=== PATIENT | male | born 1960 | race Caucasian/White ===

== ENCOUNTER 2023-07-29 07:15 | Outpatient (OUT) | payer OTHER, SELFPAY ==
[2023-07-29 07:38] LABS: Basophils Percent Auto 0.6 % (0.2-2.0); Eosinophils Absolute Auto 0.2 10^3/uL (0.0-0.7); Eosinophils Percent Auto 2.5 % (0.9-7.0); Hematocrit 41.3 % (42.0-54.0); Hemoglobin 13.9 g/dL (14.0-18.0); Immature Granulocytes Abs Auto 0.01 10^3/uL (0.00-0.03); Immature Granulocytes Pct Auto 0.2 % (0.0-0.5); Lymphocytes Percent Auto 31.2 % (20.5-60.0); Mean Corpuscular HGB Conc 33.7 g/dL (29.9-35.2); Mean Corpuscular Hemoglobin 30.5 pg (25.9-34.0); Mean Corpuscular Volume 90.6 fL (80.0-94.0); Mean Platelet Volume 9.7 fL (9.5-13.5); Monocytes Absolute Auto 0.6 10^3/uL (0.3-0.8); Monocytes Percent Auto 9.2 % (1.7-12.0); Neutrophils Absolute Auto 3.6 10^3/uL (1.4-6.5); Neutrophils Percent Auto 56.3 % (43.0-75.0); Platelet Count 238 10^3/uL (150-450); Red Blood Count 4.56 10^6/uL (4.70-6.10); Red Cell Distribution Width 12.5 % (11.0-15.0); White Blood Count 6.3 10^3/uL (4.0-11.0)
[2023-07-29 08:19] LABS: Bilirubin Urine NEGATIVE (NEGATIVE); Blood Urine NEGATIVE (NEGATIVE); Clarity Urine CLEAR (CLEAR); Color Urine LT. YELLOW (YELLOW); Glucose Urine UA NEGATIVE (NEGATIVE); Ketones Urine NEGATIVE (NEGATIVE); Leukocyte Esterase Urine NEGATIVE (NEGATIVE); Nitrite Urine NEGATIVE (NEGATIVE); Protein Urine NEGATIVE (NEG/TRACE); Urobilinogen Urine 0.2 EU/dL (0.2-1.0)
[2023-07-29 08:31] LABS: Alanine Aminotransferase 30 U/L (16-63); Albumin Level 3.5 g/dL (3.4-5.0); Alkaline Phosphatase 88 U/L (46-116); Aspartate Amino Transferase 14 U/L (15-37); BUN Creatinine Ratio 10.5; Bilirubin Total 0.4 mg/dL (0.2-1.0); Calcium 8.5 mg/dL (8.5-10.1); Carbon Dioxide 27.4 mmol/L (21.0-32.0); Chloride 102 mmol/L (98-107); Chol HDL Ratio 3.1; Cholesterol 159 mg/dL (<=200); Estimated GFR (African America >60 (>=60); Estimated GFR (Non-African Ame 55 (>=60); Globulin 3.6 g/dL; Glucose 93 mg/dL (74-106); HDL Cholesterol 51 mg/dL (40-60); LDL Cholesterol Calculated 91.4 mg/dL; Potassium 4.4 mmol/L (3.5-5.1); Sodium 137 mmol/L (136-145); Thyroid Stimulating Hormone 2.391 uIU/mL (0.358-3.740); Total Protein 7.1 g/dL (6.4-8.2); Triglycerides 83 mg/dL (<=150); VLDL CHOLESTEROL 16.6 mg/dL
[2023-07-29 08:37] LABS: Estimated Average Glucose 117 mg/dL; Glycohemoglobin A1C 5.7 % (4.5-6.2)
[2023-07-29 08:38] LABS: Bacteria Urine NONE SEEN #/HPF (NONE SEEN); Cast Seen? NONE SEEN #/LPF (NONE SEEN); Crystals Seen? None Seen #/HPF (None Seen); Mucus Urine NONE SEEN (NONE SEEN); RBC Urine 0-2 #/HPF (0-2); Squamous Epithelial Cell Urine RARE #/LPF (NONE/RARE); WBC Urine 0-2 #/HPF (NONE SEEN)
[2023-07-29 08:39] LABS: Urine Culture Indicated ALREADY ORDERED
== END 2023-07-29 07:16 | disposition home or self-care (01) ==
PROVIDERS: PCP Family Medicine; Visit Provider Family Medicine
DX: E78.5 Hyperlipidemia, unspecified (principal); R79.89 Other specified abnormal findings of blood chemistry; Z79.899 Other long term (current) drug therapy; R63.5 Abnormal weight gain; R35.1 Nocturia
CPT/HCPCS: 36415; 80053; 80061; 81001; 83036; 84443; 85025; 87086

== ENCOUNTER 2023-10-23 15:38 | Outpatient (OUT) | payer OTHER, SELFPAY ==
[2023-10-23 16:00] LABS: Basophils Percent Auto 0.4 % (0.2-2.0); Eosinophils Absolute Auto 0.3 10^3/uL (0.0-0.7); Eosinophils Percent Auto 4.1 % (0.9-7.0); Hematocrit 36.6 % (42.0-54.0); Hemoglobin 12.5 g/dL (14.0-18.0); Immature Granulocytes Abs Auto 0.02 10^3/uL (0.00-0.03); Immature Granulocytes Pct Auto 0.2 % (0.0-0.5); Lymphocytes Absolute Auto 1.4 10^3/uL (1.2-3.8); Lymphocytes Percent Auto 16.9 % (20.5-60.0); Mean Corpuscular HGB Conc 34.2 g/dL (29.9-35.2); Mean Corpuscular Hemoglobin 30.7 pg (25.9-34.0); Mean Corpuscular Volume 89.9 fL (80.0-94.0); Mean Platelet Volume 8.8 fL (9.5-13.5); Monocytes Absolute Auto 0.9 10^3/uL (0.3-0.8); Monocytes Percent Auto 10.8 % (1.7-12.0); Neutrophils Absolute Auto 5.5 10^3/uL (1.4-6.5); Neutrophils Percent Auto 67.6 % (43.0-75.0); Platelet Count 319 10^3/uL (150-450); Red Blood Count 4.07 10^6/uL (4.70-6.10); Red Cell Distribution Width 12.2 % (11.0-15.0); White Blood Count 8.1 10^3/uL (4.0-11.0)
[2023-10-23 16:26] LABS: Erythrocyte Sedimentation Rate 74 mm/hr (<=20)
[2023-10-23 17:42] LABS: Alanine Aminotransferase 27 U/L (16-63); Albumin Globulin Ratio 0.8; Albumin Level 3.3 g/dL (3.4-5.0); Alkaline Phosphatase 108 U/L (46-116); Anion Gap 13.9; Aspartate Amino Transferase 16 U/L (15-37); Bilirubin Total 0.3 mg/dL (0.2-1.0); C Reactive Protein 3.91 mg/dL (<=0.50); Calcium 8.9 mg/dL (8.5-10.1); Carbon Dioxide 27.2 mmol/L (21.0-32.0); Chloride 100 mmol/L (98-107); Estimated GFR (African America >60 (>=60); Estimated GFR (Non-African Ame 56 (>=60); Globulin 4.3 g/dL; Glucose 121 mg/dL (74-106); Potassium 4.1 mmol/L (3.5-5.1); Sodium 137 mmol/L (136-145); Total Protein 7.6 g/dL (6.4-8.2); Uric Acid 6.4 mg/dL (3.5-7.2)
[2023-10-25 14:15] LABS: Anti-CCP Ab, IgG/IgA 10 units (0-19)
[2023-10-25 15:14] LABS: Lyme Total Antibody CIA Negative (Negative)
[2023-10-26 11:10] LABS: Antinuclear Antibodies, IFA Positive (.)
== END 2023-10-23 15:39 | disposition home or self-care (01) ==
LOC: LAB 15:40
PROVIDERS: PCP Family Medicine; Visit Provider Family Medicine
DX: Z79.899 Other long term (current) drug therapy (principal); M25.50 Pain in unspecified joint; T14.8XXA Other injury of unspecified body region, initial encounter
CPT/HCPCS: 36415; 80053; 84550; 85025; 85652; 86038; 86140; 86200; 86431; 86618

== ENCOUNTER 2023-11-30 16:32 | Outpatient (OUT) | payer OTHER, SELFPAY ==
[2023-11-30 17:14] LABS: Basophils Percent Auto 0.6 % (0.2-2.0); Eosinophils Absolute Auto 0.2 10^3/uL (0.0-0.7); Eosinophils Percent Auto 3.2 % (0.9-7.0); Hemoglobin 13.3 g/dL (14.0-18.0); Immature Granulocytes Abs Auto 0.02 10^3/uL (0.00-0.03); Immature Granulocytes Pct Auto 0.3 % (0.0-0.5); Lymphocytes Absolute Auto 1.4 10^3/uL (1.2-3.8); Lymphocytes Percent Auto 19.6 % (20.5-60.0); Mean Corpuscular HGB Conc 34.1 g/dL (29.9-35.2); Mean Corpuscular Volume 90.9 fL (80.0-94.0); Mean Platelet Volume 9.9 fL (9.5-13.5); Monocytes Absolute Auto 0.7 10^3/uL (0.3-0.8); Monocytes Percent Auto 9.3 % (1.7-12.0); Neutrophils Absolute Auto 4.9 10^3/uL (1.4-6.5); Platelet Count 249 10^3/uL (150-450); Red Blood Count 4.29 10^6/uL (4.70-6.10); Red Cell Distribution Width 12.9 % (11.0-15.0); White Blood Count 7.2 10^3/uL (4.0-11.0)
== END 2023-11-30 16:33 | disposition home or self-care (01) ==
LOC: LAB 16:33
PROVIDERS: PCP Family Medicine; Visit Provider Family Medicine
DX: D64.9 Anemia, unspecified (principal)
CPT/HCPCS: 36415; 85025

== ENCOUNTER 2024-09-24 16:58 | Emergency (ER) | payer OTHER, SELFPAY ==
[2024-09-24 17:04] VITALS: BP 151/93; PULSE 67; TEMP 36.7; O2SAT 97; BMI 39.5
--- NOTE | 2024-09-24 17:29 | ED.UPPEXIN1 ---
HPI HPI - Extremity Injury (Upper) General Chief Complaint: Extremity Injury, Upper Stated Complaint: L SHOULDER PAIN Time Seen by Provider: 09/24/24 17:05 Source: patient Mode of arrival: walk-in Limitations: no limitations History of Present Illness HPI narrative: 63-year-old male presents here with a chief complaint of left shoulder injury. Patient was doing yard work several days ago states he fell with his arm outstretched over the last couple days it increased difficulty using the left upper extremity and raising above his head due to pain. There is no obvious deformity. No obvious dislocation. He is right-hand dominant. States has not injured this extremity in the past. He is here for evaluation. Related Data Previous Rx's ?Medication ?Instructions ?Recorded ibuprofen 800 mg tablet 800 mg PO Q8H PRN pain #30 tabs 09/24/24 Allergies Allergy/AdvReac Type Severity Reaction Status Date / Time No Known Drug Allergies Allergy Verified 09/24/24 17:04 Opioid HPI Opioid Management Most Recent Pain and Opioid Data: Last Pain Scale 5 Today, 17:12 Last ED Pain Assessment Today, 17:12 Review of Systems ROS Status of ROS 10 or more systems reviewed and unremarkable except as noted in history and below PFSH PFSH Social History Little interest or pleasure in doing things: not at all Feeling down, depressed, or hopeless: not at all Exam Narrative Exam Narrative: All Systems are negative except as noted/marked.All systems reviewed and otherwise negative Nurses note and vital signs reviewed and patient is not hypoxic. General: The patient appears well and in no apparent distress. Patient is resting comfortably on cart. Skin: Warm, dry, no pallor noted. There is no rash noted. Head: Normocephalic, atraumatic Eye: Normal conjunctiva, no drainage, EOMI. PERRL Ears, Nose, Mouth, and Throat: oral mucosa is moist. Nares patent. Mouth without vesicles. Ear canals patent. Tm's without Erythema Cardiovascular: Regular Rate and Rhythm Musculoskeletal: Pain, difficulty with range of motion including elevation above 180 degrees, abduction and adduction limited due to pain, no acute dislocation, suspected rotator cuff or labrum injury the patient has no evidence of calf tenderness, no pitting edema, symmetrical pulses noted bilaterally Neurological: A&O x4, normal speech Psychiatric: Cooperative Constitutional Vital Signs, click to edit/add: Last Vital Signs Temp 98.1 F 09/24/24 17:04 Pulse 67 09/24/24 17:04 Resp 20 09/24/24 17:04 BP 151/93 H 09/24/24 17:04 Pulse Ox 97 09/24/24 17:04 O2 Del Method Room Air 09/24/24 17:04 Course Vital Signs Vital signs: Vital Signs Temperature 98.1 F 09/24/24 17:04 Pulse Rate 67 09/24/24 17:04 Respiratory Rate 20 09/24/24 17:04 Blood Pressure 151/93 H 09/24/24 17:04 Pulse Oximetry 97 09/24/24 17:04 Oxygen Delivery Method Room Air 09/24/24 17:04 Temperature 98.1 F 09/24/24 17:04 Pulse Rate 67 09/24/24 17:04 Respiratory Rate 20 09/24/24 17:04 Blood Pressure 151/93 H 09/24/24 17:04 Pulse Oximetry 97 09/24/24 17:04 Oxygen Delivery Method Room Air 09/24/24 17:04 MDM - Extremity Injury (Upper) MDM Narrative Medical decision making narrative: 63-year-old male presents here with a chief complaint of left shoulder injury. Patient was doing yard work several days ago states he fell with his arm outstretched over the last couple days it increased difficulty using the left upper extremity and raising above his head due to pain. There is no obvious deformity. No obvious dislocation. He is right-hand dominant. States has not injured this extremity in the past. He is here for evaluation. Toradol discharged home with diagnosis shoulder sprain x-ray showed no acute fracture or deformity. Believe patient has a shoulder sprain possible rotator cuff injury. He will follow-up with Dr. Gleason's office. He was given a prescription of ibuprofen medicated here with Toradol. Patient agrees with plan of care Differential Diagnosis Differential diagnosis: Likely dislocation of shoulder and other Medical Records Attestation: I reviewed the patient's medical records. Imaging Data shoulder: Radiologist's impression: neg no dislocation Discharge Plan Discharge Chief Complaint: Extremity Injury, Upper Clinical Impression: Shoulder sprain Patient Disposition: Home, Self-Care Time of Disposition Decision: 17:46 Condition: Good Prescriptions / Home Meds: New ibuprofen 800 mg tablet 800 mg PO Q8H PRN (Reason: pain) Qty: 30 0RF Print Language: Ukrainian Instructions: Shoulder Sprain (ED), P.R.I.C.E. Treatment (ED) Referrals: BABAR WALKER [Primary Care Provider, Family Practice] - 1 week Walter Gleason MD [Physician, Orthopedics] - 09/30/24 11:00 am
[2024-09-24 18:00] VITALS: PULSE 68; O2SAT 98
== END 2024-09-24 18:00 | disposition home or self-care (01) ==
PROVIDERS: Emergency Provider Emergency Medicine; PCP Family Medicine
DX: S43.402A Unspecified sprain of left shoulder joint, initial encounter (principal); W18.39XA Other fall on same level, initial encounter
CPT/HCPCS: 73030; 99283

== ENCOUNTER 2024-10-17 12:18 | Outpatient (OUT) | payer OTHER, SELFPAY ==
--- OUTSIDE RECORDS SUMMARY | 2024-09-30 07:00 | XMS_ITS ---
Author Organization [facility] Address [address] [place] [address] Care Team Providers Care Hand Stitcher Name Role Phone Rosibel Walter Unavailable [phone] Allergies No Known Allergies Reason For Referral Reason APPROVED .........PL EASE OBTAIN AUTHORIZATION FOR LEFT SHOULDER MRI Diagnosis 1 Acute pain of left s houlder (M25.512) Referral Organization [facility] Referring Provider First Name Walter Referring Provider Last Name Rosibel Referring Provider Speciality Orthopedic Surgery Referred Organization [facility] alejandrina Referred Address [place], [place], Procedure 1 MRI Joint Upper Ext w/o Dye (80001) General Notes Jacqueline Gómez 025 01:27:07 PM >NEED DICTATION, PENDING [employer] DRAFT #[id number] Amy 10/01/2024 08:01:02 AM >APPROVED PER [employer] Authorization #[id number] Tracking #[id number] VALID 10/01/2024-11/15/2024 COPY IN CHART MA NOTIFIED REF FAXED TO Sudeep MORTON Monica 10/02/2024 08:17:44 AM >FAXED ORDER Referral Priority Routine REASON FOR VISIT [facility] ER LEFT SHOULDER PAIN Medications Medication SIG (Take, Route, Frequency, Duration) Notes Start Date End Date Status omeprazole Active amLODIPine Active Social History Tobacco Use: Social History Observation Description Date Details (start date - stop date) Never Smoker NA - NA AUDIT-C (Standard) Question Answer Notes Did you have a drink contain ing alcohol in the past year? Yes How often did you have a dri nk containing alcohol in the past year? Monthly or less (1 point) How many drinks did you have on a typical day when you were drinking in the past year? 1 or 2 drinks (0 point) How often did you have six o r more drinks on one occasion in the past year? Never (0 point) Points 1 Interpretation Negative Tobacco Control (Standard) Question Answer Notes Tobacco use: Nonsmoker Vital Signs Height 5'6 in 09/30/2024 Weight 245 lbs 09/30/2024 BMI 39.54 09/30/2024 Encounters Encounter Location Date Provider Diagnosis [facility] [facility] [address] [place] [address] [place] [address] 09/30/2024 Walter Gleason Acute pain of left shoulder M25.512 Assessments Encounter Date Diagnosis (ICD Code) Assessment Notes Treatment Notes Treatment Clinical Notes Section Notes 09/30/2024 Acute pain of left shoulder (ICD-10 - M25.512) 09/30/2024 Other Patient's history and examination of his left shoulder concerning for a rotator cuff tear. I recommended an MRI scan. Will follow-up once the MRI is complete. Import medication Plan Of Treatment Treatment Notes Assessment Notes Other Patient's history and examination of his left shoulder concerning for a rotator cuff tear. I recommended an MRI scan. Will follow-up once the MRI is complete. Import medication Pending Test Test Name Order Date MRI : Shoulder W/O Contrast Left - [id number] 09/30/2024 Referrals Referral Date Details 09/30/2024 09/30/2024, APPROVED .........PLEASE OBTAIN AUTHORIZATION FOR LEFT SHOULDER MRI, [place], [place] Next Appt Details Follow Up: AFTER MRI, Reason : Progress Notes * ROSITA GARCIA JRDOB:[birth year] (64 yo M)Acc No.[id number]:09/30/2024 Patient: Selina ROSITA ROSAS JR Provider: Esteban Gleason MD :1960 A ge:63 Y S ex:Male Date:09/30/2024 Address:[address] [place], [place] [id number] Subjective: * Chief Complaints: * 1 . [facility] ER LEFT SHOULDER PAIN. * HPI: G eneral Follow Up Information: Patient presents today for left shoulder injury sustained this past week. He reports bug working with a tiller started to roll down to the hill and get away from him. As he was going after it he fell to his left shoulder with acute onset of pain. G eneral Info per Patient Report: Have you seen another doctor in this practice? N o. S flako affected is L eft. J oint or body part affected is s noahulder. D ate of Injury:?09/15/2024. S tart of Pain/Cause of Injury . P ain occurred i njury. Work related: N o. M otor vehicle accident: N o. T hird green party responsibility: N o. Q uality of pain is s evere. T ype of pain: s harp. H ave you been seen by a Dentist in the last year? Y es. D o you have any dental problems? N o. * ROS: G astrointestinal: Ulcer/Reflux Y es. M usculoskeletal: Joint pain Y es. J oint Swelling Y es. J oint stiffness Y es. N eurological: Numbness/ Tingling Yes. * Medical History: R espiratory problems:, Heart problems:, Blood Clots: , High Blood Pressure, Kidney trouble, CPAP Machine: yes, using it, Sleep apnea. * Surgical History: U mbilical hernia repair 10/13/2022 ?. * Family History: G randparents: diagnosed with Arthritis. M other: diagnosed with Stroke, Diabetes, Arthritis, Heart trouble, Lung disease. F ather: diagnosed with Stroke, Cancer. * Social History: E xercise regularly: No . W hat is your place of residence?: home . A CLAUDIO-C (Standard) D id you have a drink containing alcohol in the past year? Y es, H ow often did you have a drink containing alcohol in the past year? M onthly or less (1 point), H ow many drinks did you have on a typical day when you were drinking in the past year? 1 or 2 drinks (0 point), H ow often did you have six or more drinks on one occasion in the past year? N ever (0 point), P oints 1 , I nterpretation N egative. T obacco Control (Standard) T obacco use: N onsmoker. * Medications: T aking amLODIPine , Taking omeprazole , Medication List reviewed and reconciled with the patient * Allergies: N .K.D.A. Objective: * Vitals: H t: 5'6 , Wt: 245 lbs, BMI:39.54. * Examination: G eneral examination: E xamination today of his left shoulder reveals a positive drop arm test. He also has weakness with external rotation testing. X -ray Imaging Studies: S trays of his left shoulder from [place] are reviewed and show no acute abnormalities. Assessment: * Assessment: 1. A cute pain of left shoulder - M25.512 (Primary) Plan: * Treatment: 2. O thers Notes: Patient's history and examination of his left shoulder concerning for a rotator cuff tear. I recommended an MRI scan. Will follow-up once the MRI is complete. Import medication * Follow Up: A FTER MRI Forms: * Images: * Electronic signature of Zander Gleason MD on 10/17/2024 at 12:20 PM EDT Sign off status: Pending * Provider: Esteban Gleason MD Date: 0 09/30/2024 Generated for Carie webb/Lauryn/Periransmitting on: 0 10/17/2024 12:20 PM EDT History and Physical Notes * HPI (History of Present Illness) Category Sub-Category Detail Notes Category Not es General Follow Up Information Patient presents tod ay for left shoulder injury sustained this past week. He reports bug working with a tiller started to roll down to the hill and get away from him. As he was going after it he fell to his left shoulder with acute onset of pain. General Info per Patient Report Side affected is Left Joint or body part affected is shoulder Pain occurred injury Work related: No Motor vehicle accident: No Quality of pain is severe Type of pain: sharp Have you seen another doctor in this pra ctice? No Date of Injury: 09/15/2024 Start of Pain/Cause of Injury 09/15/2024 Third green party responsibility: No Have you been seen by a Dentist in the l ast year? Yes Do you have any dental problems? No Examination Category Sub-Category Detail Notes Category Not es General examination Examinat ion today of his left shoulder reveals a positive drop arm test. He also has weakness with external rotation testing. X-ray Imaging Studies Strays of his left shoulder from [place] are reviewed and show no acute abnormalities. Consultation Request Notes Referral Date Referring Provider Referred Provider Not es 09/30/2024 Walter Gleason , KALE .. .......PLEASE OBTAIN AUTHORIZATION FOR LEFT SHOULDER MRI
--- OUTSIDE RECORDS SUMMARY | 2024-10-17 12:20 | XMS_ITS | Encounter Summary ---
Author Organization [facility] Address [address] [place] [address] Care Team Providers Care Clinical Pharmacy Coordinator Name Role Phone Omega Hansen MD Primary Care Provider [phone] Encounter Details Date Type Department Care Team (Late st Contact Info) Description 01/03/2023 Abstract [facility] [address] [place] [id number] Peggy Lan RN [address] [place], [place] [id number] Social History Tobacco Use Types Packs/Day Years Used Date Smoking Tobacco: Never Smokeless Tobacco: Never Tobacco Cessation:Counseling Given: Not Answered Alcohol Use Standard Drinks/Week Comments Yes 4 (1 standard drink = 0.6 oz pur e alcohol) Sex and Gender Information Value Date Recorded Sex Assigned at Not on file Legal Sex Male 6:55 PM EDT Gender Identity Not on file Sexual Orientation Not on file documented as of this encounter Plan of Treatment Not on file documented as of this encounter Visit Diagnoses Not on filedocumented in this encounter Care Teams Clinical Pharmacy Coordinator Relationship Specialty Start Date End Date Omega Hansen MD [address] [place] [address] [place] [address] PCP - General Family Medicine 12/28/22 documented as of this encounter
--- OUTSIDE RECORDS SUMMARY | 2024-10-17 12:20 | XMS_ITS | Clinical Summary ---
Author Organization [facility] Address [id number] [address] [place] [address] Care Team Providers Care Research And Evaluation Manager Name Role Phone Omega Hansen DO Primary Care Provider [phone] Allergies No known active allergies Medications amLODIPine (NORVASC) 2.5 mg tablet Take 1 tablet (2.5 mg total) by mouth in the morning. Active omeprazole (PriLOSEC OTC) 20 mg EC tablet Take 1 tablet (20 mg total) by mouth in the morning. Active Active Problems Problem Noted Date Diagnosed Date GERD (gastroesophageal reflux disease) 4 Stage 3 acute kidney injury 09/11/2023 Chest pressure 09/10/2023 Hyperlipidemia 01/03/2023 Obstructive sleep apnea 01/03/2023 Primary hypertension 02/05/2015 Family History Medical History Relation Name Comments Cancer Father started in lymp hnodes and spread to bone Diabetes Mother Hypertension Mother Mitchel's disease Mother Relation Name Status Comments Brother Alive Father Mother Sister Alive Social History Tobacco Use Types Packs/Day Years Used Date Smoking Tobacco: Never Smokeless Tobacco: Never Tobacco Cessation:Counseling Given: No Alcohol Use Standard Drinks/Week Comments Yes 0 (1 standard drink = 0.6 oz pur e alcohol) social [facility] Utilities Answer Date Recorded In the past 12 months has th e electric, gas, oil, or water company threatened to shut off services in your home? No 09/11/2023 PRAPARE - Transportation Answer Date Re corded In the past 12 months, has l ack of transportation kept you from medical appointments or from getting medications? No 08/21 In the past 12 months, has l ack of transportation kept you from meetings, work, or from getting things needed for daily living? No 09/11/2023 Housing Instability Answer Date Recorde d Are you worried or concerned that in the next two months you may not have stable housing that you own, rent or stay in as a part of a household? No 09/11/2023 Childcare Answer Date Recorded Childcare Unknown 10/31/2018 Employment Answer Date Recorded Employment Unknown 10/31/2018 Hunger Screening Answer Date Recorded Within the past 12 months we worried whether our food would run out before we got money to buy more. Never True 09/11/2023 Within the past 12 months th e food we bought just didn't last and we didn't have money to get more. Never True 09/11/2023 Sex and Gender Information Value Date Recorded Sex Assigned at Not on file Legal Sex Male 11:47 AM EDT Gender Identity Not on file Sexual Orientation Not on file Last Filed Vital Signs Vital Sign Reading Time Taken Comments Blood Pressure 127/81 09/11/2023 1:00 PM EDT Pulse 70 09/11/2023 1:00 PM EDT Temperature 37.2 C (98.9 F) 09/11/2023 1:00 PM EDT Respiratory Rate 16 09/11/2023 1:00 PM EDT Oxygen Saturation 96% 09/11/2023 1:00 PM EDT Inhaled Oxygen Concentration - - Weight 112 kg (247 lb) 09/11/2023 1:00 PM EDT Height 167.6 cm (5' 6 ) 09/11/2023 1:00 PM EDT Body Mass Index 39.87 09/11/2023 1:00 PM EDT Plan of Treatment Health Maintenance Due Date Last Done Comments Depression Screening 1974 Zoster (Shingles) Vaccine (1 of 2) 2012 COVID-19 Vaccine (2023-2 5 season) 2024 09/10/2020, 08/20/2020 DTaP,Tdap and Td Vaccines (2 - Td or Tdap) 09/01/2024 09/01/2014 Adult BMI Screening 09/10/2024 09/11/2023 Tobacco Screening 09/10/2024 09/11/2023 Influenza Vaccine 01/20/2025 02/20/2020, , 03/30/2017, Additional history exists Goals Goal Patient Goal Type Associated Problems Recent Progress Patient-Stated? Author home General Yes Pura Durham LSW Note: Evaluation of progress towards goal: await testing results Medical Devices Not on file Insurance [employer] Advance Directives * Full Code (Latest Code Status on File) Date Activated Date Inactivated Comments 09/10/2023 7:46 PM 09/11/2023 6:51 PM Care Teams Research And Evaluation Manager Relationship Specialty Start Date End Date Omega Hansen DO [address] [place] [address] [place] [address] PCP - General Family Medicine 09/10/23
--- OUTSIDE RECORDS SUMMARY | 2024-10-17 12:20 | XMS_ITS | Encounter Summary ---
Author Organization [facility] Address [address] [place] [address] Phone Care Team Providers Care Cena Name Role Phone Omega Hansen DO Primary Care Provider [phone] Omega Hansen DO Primary Care Provider [phone] Jenny Nj MD Unavailable [phone] Encounter Details Date Type Department Care Team (Late st Contact Info) Description 02/27/2024 Scanned Document [facility] [address] [place] [id number] Scanning, Generic Provider Social History Tobacco Use Types Packs/Day Years Used Date Smoking Tobacco: Never Smokeless Tobacco: Never Alcohol Use Standard Drinks/Week Comments Yes 0 (1 standard drink = 0.6 oz pur e alcohol) social Sex and Gender Information Value Date Recorded Sex Assigned at Not on file Legal Sex Male 10:37 PM EST Gender Identity Not on file Sexual Orientation Not on file documented as of this encounter Plan of Treatment Upcoming Encounters Date Type Department Care Team (Late st Contact Info) Description 05/01/2025 8:30 AM EST Office Visit [address] [place] [address] Jenny Nj MD [address] [place] [address] documented as of this encounter Visit Diagnoses Not on filedocumented in this encounter Additional Health Concerns Assessment Noted Time A fall risk assessment has been complete d for the patient 05/04/2023 10:54 AM EST documented as of this encounter Care Teams Cena Relationship Specialty Start Date End Date Omega Hansen DO PCP - General 05/22/18 04/29/24 Omega Hansen DO [address] [place] [address] PCP - General Family Medicine 04/30/24 Jenny Nj MD [facility] [address] [facility] [address] [place] [address] Consulting Physician Cardiology 04/30/24 documented as of this encounter
--- OUTSIDE RECORDS SUMMARY | 2024-10-17 12:20 | XMS_ITS | Clinical Summary ---
Author Organization [facility] Address [address] [place] [address] Care Team Providers Care Carpentry Supervisor Name Role Phone Omega Hansen MD Primary Care Provider [phone] Allergies Active Allergy Reactions Criticality Noted Date Comments Other Unknown 01/03/2023 seasonal Medications amLODIPine (Norvasc) 2.5 MG tablet Take 2.5 mg by mouth in the morning. Active fluocinonide (Lidex) 0.05 % ointment Apply topically. Active omeprazole (PriLOSEC) [address] bettinaIndashok ons:LPRD (laryngopharyng eal reflux disease) Take 1 capsule (40 mg) by mouth in the morning. Take before meals. Do not crush or chew.. 90 capsule 01/09/2023 Active famotidine (Pepcid) 20 MG tabletIndicatio ns:LPRD (laryngopharyng eal reflux disease) Take 1 tablet (20 mg) by mouth at bedtime. 90 tablet 01/09/2023 Active Active Problems Problem Noted Date Diagnosed Date Globus sensation 01/09/2023 Allergic rhinitis 01/03/2023 Arthritis of right knee 01/03/2023 Dysphagia 01/03/2023 Essential (primary) hypertension 01/03/2023 LPRD (laryngopharyngeal reflux disease) 01/04/20 Hyperlipidemia 01/03/2023 Hyperparathyroidism 01/03/2023 Insomnia 01/03/2023 Obstructive sleep apnea 01/03/2023 Stage 2 chronic kidney disease 01/03/2023 Stage 3 chronic kidney disease (HCC) 01/03/2023 Hypertensive chronic kidney disease with stage 1 through stage 4 chronic kidney disease, or unspecified chronic kidney disease 01/03/2023 Bilateral tinnitus 01/03/2023 Resolved Problems Problem Noted Date Diagnosed Date Resolved Date BMI 39.0-39.9,adult 01/03/2023 01/04/20 23 Psychophysiologic insomnia 01/03/2023 0 01/03/2023 Family History Medical History Relation Name Comments Cancer Father Heart failure Maternal Grandfather COPD Maternal Grandmother COPD Mother Diabetes Mother Hypertension Mother Stroke Mother Heart failure Paternal Grandfather Relation Name Status Comments Father Maternal Grandfather Maternal Grandmother Mother Paternal Grandfather Social History Tobacco Use Types Packs/Day Years [...] Sign Reading Time Taken Comments Blood Pressure 129/85 01/09/2023 1:54 PM EDT Pulse - - Temperature - - Respiratory Rate - - Oxygen Saturation - - Inhaled Oxygen Concentration - - Weight 117 kg (257 lb) 01/09/2023 1:54 PM EDT Height 167.6 cm (5' 6 ) 01/09/2023 1:54 PM EDT Body Mass Index 41.48 01/09/2023 1:54 PM EDT Plan of Treatment Health Maintenance Due Date Last Done Comments CT Colonography 1960 FIT-DNA 1960 FIT 1960 FOBT 1960 Sigmoidoscopy 1960 Influenza Vaccine (Season Ended) 2025 04/01/2020, 02/20/2020, 02/18/2018, Additional history exists Colonoscopy 06/15/2031 06/15/2021 Colorectal Cancer Screening 06/15/2031 Procedures Procedure Name Priority Date/Time Associated Diagnosis Comments COLONOSCOPY Routine 06/15/2021 12:00 PM EST Anemia, unspecified from Last 3 Months or Most Recently Relevant to Health Maintenance Results * Colonoscopy (06/15/2021 12:00 PM EST) Anatomical Region Laterality Modality Endoscopy 06/15/2021 12:0 0 PM EST Narrative 06/15/2021 12:00 PM EST PERFORMED AT [facility] LOCATION:[id number] Procedure Note CONVERSION, GENERIC - 10/05/2022 PERFORMED AT [facility] LOCATION:[id number] us Benton Kang MD ENDOSCOPY PROCEDURE ORDERABL ES Final Result from Last 3 Months or Most Recently Relevant to Health Maintenance Insurance [employer] Care Teams Carpentry Supervisor Relationship Specialty Start Date End Date Omega Hansen MD [address] [place] [address] [place] [address] [place] [address] PCP - General Family Medicine 12/28/22
--- OUTSIDE RECORDS SUMMARY | 2024-10-17 12:20 | XMS_ITS | Patient Health Record ---
Author Organization [facility] Address [address] [place] [address] Care Team Providers Care Clinical Rn Name Role Phone GleasonWalter Unavailable [phone] Allergies No Known Allergies Reason For Referral Reason APPROVED .........PL EASE OBTAIN AUTHORIZATION FOR LEFT SHOULDER MRI Diagnosis 1 Acute pain of left s houlder (M25.512) Referral Organization [facility] Referring Provider First Name Walter Referring Provider Last Name Rosibel Referring Provider Speciality Orthopedic Surgery Referred Organization [facility] alejandrina Referred Address [place], [place], Procedure 1 MRI Joint Upper Ext w/o Dye ([id number]) General Notes Jacqueline Gómez 025 01:27:07 PM >NEED DICTATION, PENDING [employer] DRAFT #[id number] Amy 10/01/2024 08:01:02 AM >APPROVED PER [employer] Authorization #[id number] Tracking #[id number] VALID 10/01/2024-11/15/2024 COPY IN CHART MA NOTIFIED REF FAXED TO Sudeep MORTON Monica 10/02/2024 08:17:44 AM >FAXED ORDER Referral Priority Routine Medications Medication SIG (Take, Route, Frequency, Duration) [...] 09/30/2024 Encounters Encounter Location Date Provider Diagnosis [facility] [place] [facility] [address] [address] [place] [address] [place] [address] 09/30/2024 Walter Gleason Acute pain of left [...] is complete. Import medication Plan Of Treatment Pending Test Test Name Order Date MRI : Shoulder W/O Contrast Left - [id number] 09/30/2024 Insurance Providers Payer Name Payer Address Payer Phone Subscriber Number Group Number Insured Name Patient Relationship to Insured Coverage Start Date Coverage End Date [employer] [address] [place] [phone] [id number] ROSITA GARCIA Self - patient is the insured Medical (General) History Medical History History ICD Code Respiratory problems: Heart problems: Blood Clots: High Blood Pressure Kidney trouble CPAP Machine: yes, using it Sleep apnea Surgical History Surgery Date(Month/Year) Umbilical hernia repair 10/13/2022 ?
--- OUTSIDE RECORDS SUMMARY | 2024-10-17 12:20 | XMS_ITS | Clinical Summary ---
Author Organization [facility] Address [address] [place] [address] Care Team Providers Care Mail Carrier And Clerk Name Role Phone Omega Hansen DO Primary Care Provider [phone] Allergies No known active allergies Medications Omeprazole 20 mg TbEC Take by mouth. Active loratadine (CLARITIN) 10 mg tablet Take 10 mg by mouth once daily. Active amLODIPine (NORVASC) 2.5 mg tablet Take 2.5 mg by mouth once daily. Active Active Problems Problem Noted Date Diagnosed Date Palpitation 02/05/2015 Hypertension 02/05/2015 Family History Medical History Relation Comments Cancer Father Lymphoma Diabetes Mother Hypertension Mother Stroke Mother Relation Status Comments Father Mother Social History Tobacco Use Types Packs/Day Years Used Date Smoking Tobacco: Never Alcohol Use Standard Drinks/Week Comments Yes 35 (1 standard drink = 0.6 oz pu re alcohol) Sex and Gender Information Value Date Recorded Sex Assigned at Not on file Legal Sex Male 3:04 PM EDT Gender Identity Not on file Sexual Orientation Not on file Occupation Industry Job Start Date Job End Date [employer] Not on file Not on file Not on file Last Filed Vital Signs Vital Sign Reading Time Taken Comments Blood Pressure 136/93 02/05/2015 10:17 AM EDT Pulse 55 02/05/2015 10:17 AM EDT Temperature 35.6 C (96 F) 02/05/2015 10:17 AM EDT Respiratory Rate 14 02/05/2015 10:17 AM EDT Oxygen Saturation 96% 02/05/2015 10:17 AM EDT Inhaled Oxygen Concentration - - Weight 104.8 kg (231 lb) 02/05/2015 10:17 AM EDT Height 167.6 cm (5' 6 ) 02/05/2015 10:17 AM EDT Body Mass Index 37.28 02/05/2015 10:17 AM EDT Plan of Treatment Health Maintenance Due Date Last Done Comments Anxiety Screening 1980 Depression Screening 1980 HIV Screening 1980 Hepatitis C Screening 1980 DTaP,Tdap,Td Vaccine (1 - Tdap) [address] Colonography 10/05/2007 Cologuard (FIT-DNA) 10/05/2007 Colonoscopy 10/05/2007 Colorectal Cancer Screening 10/05/2007 Diabetes Screening 10/05/2007 Fecal Occult Blood 10/05/2007 Prostate Cancer Screening Discussion 10/05/2007 Sigmoidoscopy 10/05/2007 Pneumococcal Vaccine: 50+ (1 of 1 - PCV) 2012 Shingrix Vaccine (1 of 2) 2012 Covid-19 Vaccine (1 - 2023- season) 2024 Influenza Vaccine (Season Ended) 2025 RSV Vaccine (1 - 1-dose 75+ series) 2037 Insurance [facility] PPO Care Teams Mail Carrier And Clerk Relationship Specialty Start Date End Date Omega Hansen DO [address] [place] [address] PCP - General Family Medicine 02/18/14
--- NOTE | 2024-10-17 12:21 | MR_ITS ---
[address] [address] Patient Name: ROSITA GARCIA MRN: [id number] date: 1960 Sex: M Assigned Patient Location: MRI Current Patient Location: MRI Accession/Order Number: [id number] Exam Date: 10/17/2024 13:31 Report Date: 10/17/2024 13:48 At the request of: SHAWNA MIX MD Procedure: MR shoulder LT wo con MR LEFT SHOULDER CLINICAL INFORMATION: Acute left shoulder pain after fall. COMPARISON: 09/24/2024. PROCEDURE: Axial, oblique coronal, and oblique sagittal long TR images of the shoulder were obtained. FINDINGS: ROTATOR CUFF AND ASSOCIATED STRUCTURES Biceps Tendon: The biceps tendon is normally situated within the bicipital groove. No complete or partial biceps tendon tear is present. Fluid tracks along the tendon sheath of the long head of biceps. This may represent sequelae of tenosynovitis. This may also represent an extension of a joint effusion. Rotator cuff: There is a full-thickness tear of the supraspinatus tendon with the tendon fibers medially retracted by 4 cm. There is a full-thickness tear of the infraspinatus tendon 2.9 cm in medial retraction of tendon fibers. The tear extends into the muscle bodies. There is unroofing of the humeral head throughout the rotator interval. There is a partial-thickness bursal surface tear of the subscapularis tendon overlying the biceps groove. The teres minor tendon shows mild increased signal intensity consistent with tendinopathy. Musculature: There is no muscular tear, contusion, or atrophy. Bursa: Fluid is present in the subacromial bursa. OSSEOUS STRUCTURES Acromioclavicular joint: There are moderate degenerative changes of the acromioclavicular joint. A type 2 acromion configuration is noted. There is no anterior or lateral acromial downsloping. Bones: No Hill-Sachs, reverse Hill-Sachs, or bony Bankart lesions are seen. There are no fractures or regions of abnormal bone marrow signal intensity. GLENOHUMERAL JOINT Joint: There is a moderate joint effusion. Cartilage: There is partial thickness chondromalacia on both sides of the joint space. Labrum: The labrum is not optimally evaluated. Other support structures: No capsular or ligamentous abnormality is seen. MR/MR shoulder LT wo con IMPRESSION: 1. There is a full-thickness tear of the supraspinatus tendon with the tendon fibers medially retracted by 4 cm. 2. There is a full-thickness tear of the infraspinatus tendon 2.9 cm in medial retraction of tendon fibers. The tear extends into the muscle bodies. 3. There is unroofing of the humeral head throughout the rotator interval. 4. There is a partial-thickness bursal surface tear of the subscapularis tendon overlying the biceps groove. 5. The teres minor tendon shows mild increased signal intensity consistent with tendinopathy. 6. Moderate hypertrophic changes are noted in the acromioclavicular joint. 7. There is a moderate joint effusion with partial thickness chondromalacia on both sides of the glenohumeral joint space. 8. Fluid tracks along the tendon sheath of the long head of biceps. This may represent sequelae of tenosynovitis. This may also represent an extension of a joint effusion. Impression dictated by: José Lima M.D. 10/17/2024 1:48 PM Dictation Location: [place] [address] Electronically authenticated by: [id number] Y Date: 10/17/2024 13:48
== END 2024-10-17 12:19 | disposition home or self-care (01) ==
LOC: MRI 12:18
PROVIDERS: PCP Family Medicine; Visit Provider Orthopaedic Surgery
DX: M25.512 Pain in left shoulder (principal); M25.412 Effusion, left shoulder; S46.012A Strain of muscle(s) and tendon(s) of the rotator cuff of left shoulder, initial encounter
CPT/HCPCS: 73221

== ENCOUNTER 2024-11-05 15:44 | Outpatient (OUT) | payer OTHER, SELFPAY ==
[2024-11-05 16:19] LABS: Basophils Percent Auto 0.6 % (0.2-2.0); Eosinophils Absolute Auto 0.2 10^3/uL (0.0-0.7); Eosinophils Percent Auto 3.5 % (0.9-7.0); Hematocrit 39.6 % (42.0-54.0); Hemoglobin 13.8 g/dL (14.0-18.0); Immature Granulocytes Abs Auto 0.01 10^3/uL (0.00-0.03); Immature Granulocytes Pct Auto 0.2 % (0.0-0.5); Lymphocytes Absolute Auto 1.7 10^3/uL (1.2-3.8); Lymphocytes Percent Auto 26.4 % (20.5-60.0); Mean Corpuscular HGB Conc 34.8 g/dL (29.9-35.2); Mean Corpuscular Hemoglobin 31.3 pg (25.9-34.0); Mean Corpuscular Volume 89.8 fL (80.0-94.0); Mean Platelet Volume 9.8 fL (9.5-13.5); Monocytes Absolute Auto 0.8 10^3/uL (0.3-0.8); Monocytes Percent Auto 12.4 % (1.7-12.0); Neutrophils Absolute Auto 3.6 10^3/uL (1.4-6.5); Neutrophils Percent Auto 56.9 % (43.0-75.0); Platelet Count 224 10^3/uL (150-450); Red Blood Count 4.41 10^6/uL (4.70-6.10); Red Cell Distribution Width 12.8 % (11.0-15.0); White Blood Count 6.4 10^3/uL (4.0-11.0)
[2024-11-05 16:25] LABS: Anion Gap 16.5; BUN Creatinine Ratio 17.9; Calcium 8.9 mg/dL (8.5-10.1); Carbon Dioxide 23.6 mmol/L (21.0-32.0); Chloride 104 mmol/L (98-107); Estimated GFR (African America >60 (>=60 mL/min/1.73m^2); Estimated GFR (Non-African Ame 60 (>=60 mL/min/1.73m^2); Glucose 101 mg/dL (74-106); Potassium 4.1 mmol/L (3.5-5.1); Sodium 140 mmol/L (136-145)
== END 2024-11-05 15:45 | disposition home or self-care (01) ==
LOC: LAB 15:48
PROVIDERS: PCP Family Medicine; Visit Provider Orthopaedic Surgery
DX: Z01.818 Encounter for other preprocedural examination (principal)
CPT/HCPCS: 36415; 80048; 85025

== ENCOUNTER 2024-11-12 14:07 | Outpatient (OUT) | payer OTHER, SELFPAY ==
--- OUTSIDE RECORDS SUMMARY | 2024-11-04 07:30 | XMS_ITS ---
Author Organization [facility] Address [address] [place] [address] Care Team Providers Care Electric Train Driver Name Role Phone Walter Gleason Unavailable [phone] Allergies No Known Allergies Results Component Value Reference Range Notes Surgery Scheduling (Not yet reviewed by provider) Interpretation: Performing Lab: Notes/Report: Social Sec number: [id number] Primary Insurance Company: [employer] Surgeon/Assist: [place] Surgery Location: [facility] Surgery Date & Time: 11/29/24 Hosp arrival time day of: [place] TO CALL Surgery End Time: 90 MINUTES Procedure: LEFT SHOULDER ARTHRO SCOPIC ROTATOR CUFF REPAIR, Special Equipment: ARTHREX Diagnosis: M75.122 Admission Type: OUTPATIENT Anesthesia Type/CPNB: GENERAL/BLOCK Post-op Appointment Date: 12/11/24 @ 1:45PM Latex Allergy NO Lab Location: [facility] Aerial Hurricane Hunter: [facility] Reason For Referral Reason APPROVED ....PLEASE OBTAIN AUTHORIZATION FOR LEFT SHOULDER ARTHROSCOPIC ROTATOR CUFF REPAIR Vasyl Yin 11/04/2024 02:32:29 PM >Cpt code 99975 Diagnosis 1 Complete tear of lef t rotator cuff, unspecified whether traumatic (M75.122) Referral Organization [facility] Referring Provider First Name Walter Referring Provider Last Name Laconia Referring Provider Speciality Orthopedic Surgery Referred Organization [facility] General Notes Jacqueline Gómez 025 02:25:48 PM >NEED SX CODE Humphrey DAS Chad 11/04/2024 02:32:29 PM >Cpt code 11178Dalia Amy 11/05/2024 02:01:30 PM >PENDING [facility] #[id number] CLINICAL ATTACHED, Jacqueline Gómez 11/06/2024 07:39:43 AM >STILL PENDING, Dalia Jacqueline 11/07/2024 07:52:06 AM >APPROVED PER [facility] Authorization #[id number] Tracking #[id number] VALID 11/29/2024-05/28/2025 COPY IN CHART MA NOTIFIED REF FAXED TO [place] Referral Priority Routine REASON FOR VISIT MRI F/U Medications Medication SIG (Take, Route, Fr equency, Duration) Notes Start Date End Date Status traMADol 50 mg 1 tab(s) orally ever y 6 hours prn pain for 7 days PRN 10/28/2024 11/04/2024 Active omeprazole Active amLODIPine Active Social History Tobacco [...] (Standard) Question Answer Notes Tobacco use: Nonsmoker Problems Problem Type SNOMED Code ICD Code Onset Dates Problem Status W/U Status Risk Notes Problem [id number] Complete tear of left rotator cuff, unspecified whether traumatic (M75.122) Active confirmed Vital Signs Height 5'6 in 11/04/2024 Weight 245 lbs 11/04/2024 BMI 39.54 11/04/2024 Encounters Encounter Location Date Provider Diagnosis [facility] [address] [place] [address] 11/04/2024 Walter Gleason Pre-op testing Z01.818 and Complete tear of left rotator cuff, unspecified whether traumatic M75.122 Assessments Encounter Date Diagnosis (ICD Code) Assessment Notes Treatment Notes Treatment Clinical Notes Section Notes 11/04/2024 Pre-op testing (ICD-10 - Z01.818) 11/04/2024 Complete tear of left rotator cuff, unspecified whether traumatic (ICD-10 - M75.122) 11/04/2024 Other For his left shoulder rotator cuff tears I recommended left shoulder arthroscopic rotator cuff repair. Have discussed risks of surgery including but not limited to 20% chance of retear given the size of his tear, chronic pain,. We have gone through additional risks and informed consent process which she understands and has elected to proceed with surgery. This will serve as the H & P. Import medication Plan Of Treatment Treatment Notes Assessment Notes Other For his left shoulder rotator cuff tears I recommended left shoulder arthroscopic rotator cuff repair. Have discussed risks of surgery including but not limited to 20% chance of retear given the size of his tear, chronic pain,. We have gone through additional risks and informed consent process which she understands and has elected to proceed with surgery. This will serve as the H & P. Import medication Pending Test Test Name Order Date CBC with diff, BMP, EKG 11/04/2024 Surgery Scheduling 11/04/2024 Referrals Referral Date Details 11/04/2024 11/04/2024, APPROVED ....PLEASE OBTAIN AUTHORIZATION FOR LEFT SHOULDER ARTHROSCOPIC ROTATOR CUFF REPAIR Vasyl Yin 11/04/2024 02:32:29 PM >Cpt code 72932, Next Appt Details Follow Up: post surgery, Suzette son: Provider Name:Walter Maldonado and, 11/29/2024 11:00:00 AM, [address], [place], [address], Provider Name:Walter Maldonado and, 12/11/2024 01:45:00 PM, [address] , [place] [address], [place], [address], Procedure Notes * Category Sub-Category Detail Notes Bracing Slingshot OTS Sling was fit to patient in the usual fashion, instructions on use and care given. All questions were answered. [id number], [facility]: L3670, LEFT, LARGE, DISPENSED BY NORMA EDWARDS Progress Notes * ROSITA GARCIA JR LDOB:[birth year] (64 yo M)Acc No.[id number]:11/04/2024 Patient: Selina ROSITA ROSAS JR Provider: Esteban Gleason MD :1960 A ge:64 Y S ex:Male Date:11/04/2024 Address:[address] [place] [address] , [id number] Subjective: * Chief Complaints: * 1 . MRI F/U. * HPI: G eneral Follow Up Information: Patient presents today for follow-up of his left shoulder injury and MRI scan. He reports at rest he does not have much in terms of pain. He has noticed that he has developed paresthesias in his left arm. * Medical History: R espiratory problems:, Heart [...] T aking amLODIPine , Taking omeprazole , Taking traMADol 50 mg tablet 1 tab(s) orally every 6 hours prn pain , stop date 11/04/2024, Notes to Pharmacist: PRN, Medication List reviewed and reconciled with the patient * Allergies: N .K.D.A. Objective: * Vitals: H t: 5'6 , Wt: 245 lbs, BMI:39.54. * Examination: G eneral examination: E xamination today of his left shoulder reveals a positive drop arm test. He is able to move the fingers without difficulty and has normal sensation. M RI Imaging Studies: M RI report and images were reviewed full-thickness retracted tears of the supraspinatus, infraspinatus and subscapularis tendons no obvious muscle atrophy. Assessment: * Assessment: 1. C omplete tear of left rotator cuff, unspecified whether traumatic - M75.122 (Primary) ? 2 . P re-op testing - Z01.818 Plan: * Treatment: 2. P re-op testing L AB: CBC with diff, BMP, EKG 3. O thers Notes: For his left shoulder rotator cuff tears I recommended left shoulder arthroscopic rotator cuff repair. Have discussed risks of surgery including but not limited to 20% chance of retear given the size of his tear, chronic pain,. We have gone through additional risks and informed consent process which she understands and has elected to proceed with surgery. This will serve as the H & P. Import medication * Procedures: B racing: Slingshot OTS S ling was fit to patient in the usual fashion, instructions on use and care given. All questions were answered. [id number], [facility]: L3670, LEFT, LARGE, DISPENSED BY NORMA EDWARDS. * Labs: * L ab: Surgery Scheduling (Collection Date & Time - 11/04/2024) Value Reference Range S ocial Sec number: [phone] * P [employer] Insurance Company: Elysia * S urgeon/Assist: DOMINGUEZ * Esteban urgery Location: [facility] * S urgery Date & Time: 11/29/24 * H osp arrival time day of: [place] TO CALL * S urgery End Time: 90 MINUTES * P rocedure: LEFT SHOULDER ARTHROSCOPIC ROTATOR CUFF REPAIR, * S pecial Equipment: ARTHREX * D iagnosis: M75.122 * A dmission Type: OUTPATIENT * A nesthesia Type/CPNB: GENERAL/BLOCK * P ost-op Appointment Date: 12/11/24 @ 1:45PM * L atex Allergy NO * L ab Location: [facility] * S glenysduler: NORMA * Follow Up: p ost surgery Forms: * Dynamic Forms DME OrderShoulder Slingshot/Abduction pillow * Images: * Electronic signature of Zander Gleason MD on 11/12/2024 at 02:10 PM EDT Sign off status: Pending * Provider: Esteban Gleason MD Date: 0 11/04/2024 Generated for Carie webb/Lauryn/Abrahamitting on: 0 11/12/2024 02:10 PM EDT History and Physical Notes * HPI (History of Present Illness) Category Sub-Category Detail Notes Category Not es General Follow Up Information Patient presents tod ay for follow-up of his left shoulder injury and MRI scan. He reports at rest he does not have much in terms of pain. He has noticed that he has developed paresthesias in his left arm. Examination Category Sub-Category Detail Notes Category Not es General examination Examinat ion today of his left shoulder reveals a positive drop arm test. He is able to move the fingers without difficulty and has normal sensation. MRI Imaging Studies MRI repo rt and images were reviewed full-thickness retracted tears of the supraspinatus, infraspinatus and subscapularis tendons no obvious muscle atrophy. Consultation Request Notes Referral Date Referring Provider Referred Provider Not es 11/04/2024 Walter Gleason , APPROVED .. ..PLEASE OBTAIN AUTHORIZATION FOR LEFT SHOULDER ARTHROSCOPIC ROTATOR CUFF REPAIR Vasyl Yin 11/04/2024 02:32:29 PM >Cpt code 37191
--- OUTSIDE RECORDS SUMMARY | 2024-11-12 14:09 | XMS_ITS | Encounter Summary ---
Author Organization [facility] Address [address] [facility] [place] [address] Care Team Providers Care Flower Machine Operator Name Role Phone Omega Hansen MD Primary Care Provider [phone] Encounter Details Date Type Department Care Team (Late st Contact Info) Description 01/03/2023 Abstract [facility] [address] [place] [id number] Peggy Lan RN [address] [place], [place] [id number] Social History Tobacco Use Types Packs/Day Years [...] on filedocumented in this encounter Care Teams Flower Machine Operator Relationship Specialty Start Date End Date Omega Hansen MD [address] [place] [address] [place] [address] PCP - General Family Medicine 12/28/22 documented as of this encounter
--- OUTSIDE RECORDS SUMMARY | 2024-11-12 14:10 | XMS_ITS | Clinical Summary ---
Author Organization [facility] Address [address] [place] [address] Care Team Providers Care Medicine Assistant Name Role Phone Omega Hansen DO Primary Care Provider [phone] Allergies No known active allergies Medications Omeprazole [...] Industry Job Start Date Job End Date [employer] Not on file Not on file Not [...] (1 - 1-dose 75+ series) 2037 Insurance [facility] PPO Care Teams Medicine Assistant Relationship Specialty Start Date End Date Omega Hansen DO [address] [place] [address] PCP - General Family Medicine 02/18/14
--- OUTSIDE RECORDS SUMMARY | 2024-11-12 14:10 | XMS_ITS | Clinical Summary ---
Author Organization [facility] Address [address] [place] [address] Care Team Providers Care Supervisor Denture Department Name Role Phone Omega Hansen MD Primary Care Provider [phone] Allergies Active Allergy Reactions Criticality Noted Date [...] disease 01/03/2023 Stage 3 chronic kidney disease 01/03/2023 Hypertensive chronic kidney disease with stage [...] Narrative 06/15/2021 12:00 PM EST PERFORMED AT [facility] LOCATION:[id number] Procedure Note CONVERSION, GENERIC - 10/05/2022 PERFORMED AT [facility] LOCATION:[id number] Benton Kang MD ENDOSCOPY PROCEDURE ORDERABL ES Final Result from Last 3 Months or Most Recently Relevant to Health Maintenance Insurance [employer] Care Teams Supervisor Denture Department Relationship Specialty Start Date End Date Omega Hansen MD [address] [place] [address] PCP - General Family Medicine 12/28/22
--- OUTSIDE RECORDS SUMMARY | 2024-11-12 14:10 | XMS_ITS | Patient Health Record ---
Author Organization [facility] Address [address] [place] [address] Care Team Providers Care Circulator Name Role Phone Walter Gleason Unavailable [phone] Clau, Kara Unavailable [phone] Allergies No Known Allergies Results Component Value Reference Range Notes Surgery Scheduling (Not yet reviewed by provider) Interpretation: Performing Lab: Notes/Report: Social Sec number: [id number] Primary Insurance Company: [employer] Surgeon/Assist: ALEDO Surgery Location: [facility] Surgery Date & Time: 11/29/24 Hosp arrival time day of: [place] TO CALL Surgery End Time: 90 MINUTES Procedure: LEFT SHOULDER ARTHRO SCOPIC ROTATOR CUFF REPAIR, Special Equipment: ARTHREX Diagnosis: M75.122 Admission Type: OUTPATIENT Anesthesia Type/CPNB: GENERAL/BLOCK Post-op Appointment Date: 12/11/24 @ 1:45PM Latex Allergy NO Lab Location: [facility] Decorating Instructor: NORMA Reason For Referral Reason APPROVED .........PL EASE OBTAIN AUTHORIZATION FOR LEFT SHOULDER MRI Diagnosis 1 Acute pain of left s sabiha (M25.512) Referral Organization [facility] Referring Provider First Name Walter Referring Provider Last Name Industry Referring Provider Speciality Orthopedic Surgery Referred Organization [facility] alejandrina Referred Address [place], [place], Procedure 1 MRI Joint Upper Ext w/o Dye ([id number]) General Notes Jacqueline Gómez 025 01:27:07 PM >NEED DICTATION, PENDING Team [employer] DRAFT #[id number], Jacqueline Gómez 10/01/2024 08:01:02 AM >APPROVED PER Team [employer] Authorization #[id number] Tracking #[id number] VALID 10/01/2024-11/15/2024 COPY IN CHART MA NOTIFIED REF FAXED TO Sudeep MORTON Monica 10/02/2024 08:17:44 AM >FAXED ORDER Referral Priority Routine Reason APPROVED ....PLEASE OBTAIN AUTHORIZATION FOR LEFT SHOULDER ARTHROSCOPIC ROTATOR CUFF REPAIR HumphreyVasyl 11/04/2024 02:32:29 PM >Cpt code 04757 Diagnosis 1 Complete tear of lef t rotator cuff, unspecified whether traumatic (M75.122) Referral Organization [facility] Referring Provider First Name Walter Referring Provider Last Name Gleason Referring Provider Speciality Orthopedic Surgery Referred Organization [facility] General Notes Jacqueline Gómez 025 02:25:48 PM >NEED SX CODE Humphrey DAS Chad 11/04/2024 02:32:29 PM >Cpt code [id number] Amy 11/05/2024 02:01:30 PM >PENDING COHERE TRX #[id number] CLINICAL ATTACHEDDalia Amy 11/06/2024 07:39:43 AM >STILL PENDINGDalia Amy 11/07/2024 07:52:06 AM >APPROVED PER Team [employer] Authorization #[id number] Tracking #[id number] VALID 11/29/2024-05/28/2025 COPY IN CHART MA NOTIFIED REF FAXED TO PETERSON Referral Priority Routine Medications Medication SIG (Take, [...] Problem Status W/U Status Risk Notes Problem 589158009 Complete tear of left rotator cuff, unspecified whether traumatic (M75.122) Active confirmed Vital Signs Height 5'6 in 11/04/2024 Weight 245 lbs 11/04/2024 BMI 39.54 11/04/2024 Encounters Encounter Location Date Provider Diagnosis [facility] [address] [place] [address] 11/04/2024 Walter Gleason Pre-op testing Z01.818 and Complete tear of left rotator cuff, unspecified whether traumatic M75.122 [facility] [address] [place] [address] 09/30/2024 Walter Gleason Acute pain of left shoulder M25.512 [facility] [address] [place] [id number] 10/28/2024 Katelyn Olguin Acute pain of left shoulder M25.512 Assessments Encounter Date Diagnosis (ICD Code) Assessment Notes Treatment Notes Treatment Clinical Notes Section Notes 09/30/2024 Acute pain of left shoulder (ICD-10 - M25.512) 10/28/2024 Acute pain of left shoulder (ICD-10 - M25.512) 11/04/2024 Pre-op testing (ICD-10 - Z01.818) 11/04/2024 [...] as the H & P. Import medication 09/30/2024 Other Patient's history and examination of his left shoulder concerning for a rotator cuff tear. I recommended an MRI scan. Will follow-up once the MRI is complete. Import medication Plan Of Treatment Pending Test Test Name Order Date MRI : Shoulder W/[place] Cont[place] - [id number] 09/30/2024 CBC with diff, BMP, EKG 11/04/2024 Surgery Scheduling 11/04/2024 Next Appt Details Provider Name:Walter Maldonado and, 11/29/2024 11:00:00 AM, [address], [place], [address], Provider Name:Walter Maldonado and, 12/11/2024 01:45:00 PM, [address], [place], [address], Insurance Providers Payer Name Payer Address Payer Phone Subscriber Number Group Number Insured Name Patient Relationship to Insured Coverage Start Date Coverage End Date [employer] [address] [place] [phone] [id number] ROSITA GARCIA JR Self - patient is the insured Medical (General) History Medical History History ICD Code Respiratory problems: Heart problems: Blood Clots: High Blood Pressure Kidney trouble CPAP Machine: yes, using it Sleep apnea Surgical History Surgery Date(Month/Year) Umbilical hernia repair 10/13/2022 ?
--- OUTSIDE RECORDS SUMMARY | 2024-11-12 14:10 | XMS_ITS | Clinical Summary ---
Author Organization [employer] Address [id number] [address] [place] [address] Care Team Providers Care Beater Room Helper Name Role Phone Omega Hansen DO Primary Care Provider [phone] Allergies No known active allergies Medications amLODIPine [...] = 0.6 oz pur e alcohol) social [facility] Utilities Answer Date Recorded In the past [...] 7:46 PM 09/11/2023 6:51 PM Care Teams Beater Room Helper Relationship Specialty Start Date End Date Omega Hansen DO [address] [place] [address] [place] [address] PCP - General Family Medicine 09/10/23
--- OUTSIDE RECORDS SUMMARY | 2024-11-12 14:10 | XMS_ITS | Encounter Summary ---
Author Organization [facility] Address [address] [place] [address] Phone Care Team Providers Care Cognos Developer Name Role Phone Omega Hansen DO Primary Care Provider [phone] Omega Hansen DO Primary Care Provider [phone] Jenny Nj MD Unavailable [phone] Encounter Details Date Type Department Care Team (Late st Contact Info) Description 02/27/2024 Scanned Document [facility] [address] [place] [id number] Scanning, Generic Provider Social History Tobacco Use [...] Description 05/01/2025 8:30 AM EST Office Visit [address] [place] [address] Jenny Nj MD [address] [facility] [address] [facility] [address] [place] [address] documented as of this encounter Visit Diagnoses Not on filedocumented in this encounter Additional Health Concerns Assessment Noted Time A fall risk assessment has been complete d for the patient 05/04/2023 10:54 AM EST documented as of this encounter Care Teams Cognos Developer Relationship Specialty Start Date End Date Omega Hansen DO PCP - General 05/22/18 04/29/24 Omega Hansen DO [address] [place] [address] PCP - General Family Medicine 04/30/24 Jenny Nj MD [facility] [address], [facility] [address] [place] [address] Consulting Physician Cardiology 04/30/24 documented as of this encounter
--- OUTSIDE RECORDS SUMMARY | 2024-11-12 14:10 | XMS_ITS | Clinical Summary ---
Author Organization [facility] Address [address] [place] [address] Care Team Providers Care Immersion Metalcleaner Name Role Phone Unavailable Primary Care Provider Unavailabl e Social History Tobacco Use Types Packs/Day Years Used Date Smoking Tobacco: Never Assessed Sex and Gender Information Value Date Recorded Sex Assigned at Not on file Legal Sex Male 12:50 PM EDT Gender Identity Not on file Sexual Orientation Not on file Plan of Treatment Upcoming Encounters Date Type Department Care Team (Latest Contact Info) Description 11/29/2024 11:30 AM EDT Hospital Encounter [facility] [address] [place] [address] Walter Gleason MD [address] [place] [address] 11/29/2024 11:30 AM EDT - 11/29/2024 1:03 PM EDT Surgery [facility] [address] [place] [address] Walter Gleason MD [address] [place] [address] LEFT SHOULDER ARTHROSCOPIC ROTATOR CUFF REPAIR Scheduled Procedures Name Priority Associated Diagnoses Date/Ti me SHOULDER ARTHROSCOPY ROTATOR CUFF REPAIR Complete tear of left rotator cuff, unspecified whether traumatic 11/29/2024 11:30 AM EDT Health Maintenance Due Date Last Done Comments DTaP/Tdap/Td vaccine (1 - Tdap) 1981 COVID-19 Vaccine (2023-2 5 season) 2024 Flu vaccine (Season Ended) 2024 Respiratory Syncytial Virus (RSV) or age 60 yrs+ (1 - 1-dose 75+ series) 2037 Polio vaccine Aged Out No longer elig ible based on patient's age to complete this topic
--- NOTE | 2024-11-12 14:15 | ECG_ITS ---
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 Measurements Intervals [place] Rate: 83 P: 63 OR: 202 QRS: -76 QRSD: 105 T: 56 QT: 384 QTc: 452 Interpretive Statements SINUS RHYTHM S1-S2-S3 PATTERN, CONSISTENT WITH PULMONARY DISEASE, RVH, OR NORMAL VARIANT INCOMPLETE RIGHT BUNDLE BRANCH BLOCK [90+ ms QRS DURATION, TERMINAL R IN V1/V2, 40+ ms S IN I/aVL/V4/V5/V6] LEFT ANTERIOR FASCICULAR BLOCK [QRS AXIS <= -45, QR IN I, RS IN II] Abnormal ECG No previous ECG available for comparison Electronically Signed On 11-12-2024 21:57:17 EDT by RERE ACOSTA M.D.
== END 2024-11-12 14:08 | disposition home or self-care (01) ==
LOC: CARD 14:07
PROVIDERS: PCP Family Medicine; Visit Provider Orthopaedic Surgery
DX: Z01.810 Encounter for preprocedural cardiovascular examination (principal); Z01.818 Encounter for other preprocedural examination
CPT/HCPCS: 93005